=== PATIENT | female | born 1960 | race Caucasian/White ===

== ENCOUNTER → 2016-05-27 | Outpatient (CLI) | payer BC ==
[~2016-05-27] MED LIST: ABILIFY PO; ABILIFY10 MG; ABILIFY10 MG PO; ACID CONTROL150 M1 PO; ALBUTEROL17 GM INH; ALLERGY RELIEF10 M2 PO; ALPRAZOLAM PO; AMBIEN10 MG PO; AMITIZA24 MCG; AMITRIPTYLINE H25 MG; AMLODIPINE BESYL5 MG PO; ASPIRIN81 M1; ASPIRIN81 M1 PO; ATIVAN PO; CHANTIX PO; CLONIDINE HCL0.1 MG PO; CYMBALTA PO; DARVOCET-N 1001 TAB; DILAUDID INJ2 MG/ML; DILAUDID PAIN PUMP; DILAUDID4 M1 PO; FENTANYL1 EAC1 TD; FIORICET 50-321 EACH PO; K-DUR20 ME2 PO; LASIX PO; LOPRESSOR PO; METOPROLOL TAR25 MG; MOBIC; NEURONTIN300 MG PO; NEURONTIN600 MG PO; NEXIUM PO; ONDANSETRON HCL4 MG PO; OXYCONTIN; PHENERGAN; PHENERGAN SUPP25 M1 PR; PHENERGAN25 MG PO; PHENTERMINE H37.5 M1 PO; PREDNISONE10 MG/DOSE PO; PROBIOTIC1 EACH; PROTONIX PO; PROVIGIL100 MG PO; SAVELLA; SEROQUEL PO; SKELAXIN PO; STOOL SOFTENER1 EAC1 PO; TOPAMAX PO; TRAMADOL HCL50 M1 PO; ULTRAM PO; WELLBUTRIN PO; WELLBUTRIN75 M1 PO; XANAX1 MG PO; ZOFRAN PO
[2016-05-27 08:45] LABS: POC - CREATININE 1.21 mg/dL (0.44-1.03)
== END | disposition home or self-care (01) ==
LOC: SCT 08:11
PROVIDERS: Internal Medicine Gastroenterology
DX: G43.909 Migraine, unspecified, not intractable, without status migrainosus (principal); R11.2 Nausea with vomiting, unspecified; R14.0 Abdominal distension (gaseous); R10.9 Unspecified abdominal pain; R68.81 Early satiety; R63.4 Abnormal weight loss; K59.00 Constipation, unspecified; Z53.9 Procedure and treatment not carried out, unspecified reason
CPT/HCPCS: 82565

== ENCOUNTER → 2016-05-29 | Outpatient (CLI) | payer BC ==
--- NOTE | ~2016-05-29 | CT71 ---
[facility] A Service of [facility] RADIOLOGY TEXT RESULTS PATIENT: JESUS VALLEJO LOCATION: [facility] : 62 UNIT #: [id number] AGE: [address]: Pj Monteiro MD SEX: F ORDER DR: [id number] [address] [address] [id number] P MR#: [id number] Acc #: [id number] NAME: JESUS VALLEJO : 1960 SEX: F STUDY DATE/TIME: 05/29/2016 9:24 UNIT: [facility] ROOM: STUDY DESCRIPTION: CT Head Wo Contrast Attending Physician: Pj Monteiro M.D. Referring Physician: Pj Monteiro M.D. Ordering Physician: Pj Monteiro M.D. Primary Care Physician: Anny Diaz A.P.R.N. MEDICAL IMAGING REPORT This report is preliminary unless electronic signature is present. EXAM CT head without contrast dated 05/29/[address] head without contrast dated 02/25/2012. HISTORY Nausea, abdominal pain, vomiting since before January 2016. Headaches. Evaluate for pituitary tumor. FINDINGS CT of the head was obtained without contrast in the axial plane. This CT exam was performed with one or more of the following radiation dose reduction techniques: automatic exposure control, adjustment of mA and/or kV according to patient size, and iterative reconstruction. No acute intracranial hemorrhage, space-occupying mass, mass effect, midline shift, or hydrocephalus. Streak artifact from the left earring limits evaluation of adjacent structures. Grossly the paranasal sinuses and mastoid air cells are well-aerated. Orbits and the ocular structures, bones are within normal limits. IMPRESSION 1. No demonstrable acute intracranial abnormality. 2. For evaluation of pituitary tumor, MRI of the sella and the pituitary gland with and without contrast is more sensitive particularly to evaluate microadenomas which are very small. No obvious abnormality could be seen in the region of the sella on these thicker slices in single axial plane. Dictated by... [facility] A Service of [facility] RADIOLOGY TEXT RESULTS PATIENT: JESUS VALLEJO LOCATION: [facility] : 62 UNIT #: [id number] AGE: [address]: Pj Monteiro MD SEX: F ORDER DR: Rafita Bray M.D. THIS IS AN ELECTRONICALLY VERIFIED REPORT Rafita Bray M.D. at 05/30/2016 12:43 PM CPR/aa TD: 05/29/2016 15:16 JOB #: [id number] MEDICAL IMAGING REPORT
--- NOTE | ~2016-05-29 | CT2 ---
[facility] A Service of [facility] RADIOLOGY TEXT RESULTS PATIENT: JESUS VALLEJO LOCATION: [facility] : 62 UNIT #: [id number] AGE: [address]: Pj Monteiro MD SEX: F ORDER DR: [id number] [place] [id number] P MR#: [id number] Acc #: [id number] NAME: JESUS VALLEJO : 1960 SEX: F STUDY DATE/TIME: 05/29/2016 9:36 UNIT: [facility] ROOM: STUDY DESCRIPTION: CT Abd and Pelv W Cont Attending Physician: Pj Monteiro M.D. Referring Physician: Pj Monteiro M.D. Ordering Physician: Pj Monteiro M.D. Primary Care Physician: Anny Diaz A.P.R.N. MEDICAL IMAGING REPORT This report is preliminary unless electronic signature is present. EXAM CT abdomen and pelvis INDICATION Nausea, abdominal pain, and vomiting. TECHNIQUE CT of the abdomen and pelvis with p.o. and IV contrast. Coronal and sagittal reconstructions were obtained. This CT exam was performed with one or more of the following radiation dose reduction techniques: automatic exposure control, adjustment of mA and/or kV according to patient size, and iterative reconstruction. COMPARISON CT abdomen and pelvis dated 07/06/2013. FINDINGS ABDOMEN: The solid abdominal organs are unchanged. There is a small 1.2 cm right adrenal adenoma. This is unchanged. Gallbladder is surgically absent. No intrahepatic or extrahepatic biliary dilatation. The bowel is not dilated. There is moderate volume of stool throughout the colon. The abdominal aorta is normal in caliber. No enlarged retroperitoneal or mesenteric lymph nodes. PELVIS: The bladder is unremarkable. Uterus is surgically absent. The ovaries are within normal limits. No enlarged pelvic or inguinal lymph nodes. No acute osseous abnormalities. There is evidence prior left pelvic fractures. Degenerative change are noted in the lumbar spine. IMPRESSION 1. No acute findings in the abdomen or pelvis. No findings to [facility] A Service of [facility] RADIOLOGY TEXT RESULTS PATIENT: JESUS VALLEJO LOCATION: [facility] : 62 UNIT #: [id number] AGE: [address]: Pj Monteiro MD SEX: F ORDER DR: account for the patient's abdominal symptoms. 2. Moderate amount of stool in the colon. Dictated by... David Luque M.D. THIS IS AN ELECTRONICALLY VERIFIED REPORT David Luque M.D. at 05/29/2016 2:38 PM MARY/maurizio TD: 05/29/2016 14:27 JOB #: [id number] MEDICAL IMAGING REPORT
[2016-05-29 08:30] LABS: POC - CREATININE 1.03 mg/dL (0.44-1.03)
== END | disposition home or self-care (01) ==
LOC: SCT 07:13
PROVIDERS: Internal Medicine Gastroenterology
DX: R11.2 Nausea with vomiting, unspecified (principal); G43.909 Migraine, unspecified, not intractable, without status migrainosus
CPT/HCPCS: 70450; 74177; 82565; Q9967

== ENCOUNTER → 2016-06-03 | Outpatient (CLI) | payer BC ==
--- NOTE | ~2016-06-03 | NM19 ---
[facility] A Service of [facility] & [facility] RADIOLOGY TEXT RESULTS PATIENT: JESUS VALLEJO LOCATION: [facility] : 62 UNIT #: [id number] AGE: [address]: Pj Monteiro MD SEX: F ORDER DR: [id number] [facility] [address] [place], [place] [address] [id number] O MR#: [id number] Acc #: [id number] NAME: JESUS VALLEJO : 1960 SEX: F STUDY DATE/TIME: 06/03/2016 14:09 UNIT: [facility] ROOM: STUDY DESCRIPTION: NM Gastric Emptying Study Attending Physician: Pj Monteiro M.D. Referring Physician: Pj Monteiro M.D. Ordering Physician: Pj Monteiro M.D. Primary Care Physician: Anny Diaz A.P.R.N. MEDICAL IMAGING REPORT This report is preliminary unless electronic signature is present EXAM Radionuclide gastric emptying scan, solid phase 06/03/2016 HISTORY Nausea, cannot eat much especially at night, makes symptoms worse. Constipation, excessive bloating, glutin intolerant, acid reflux, back pain, gassy, started before 2015, doing better in the past week. Cholecystectomy 2015. No history of cancer. FINDINGS Following ingestion of 549 mcCi technetium-99m sulfur colloid admixed in eggs with water, anterior and posterior views of the abdomen were obtained at 0, 15, 30, 45, 60, 75 minutes post ingestion. Region of interest drawn around stomach. Time activity curve constructed. Percent remaining at time intervals as follows: 15 minutes - 75%, 30 minutes - 74%, 45 minutes - 58%, 60 minutes - 55%, 75 minutes - 34%. Percent empty at time intervals as follows: 15 minutes - 25%, 30 minutes - 26%, 45 minutes - 42%, 60 minutes - 45%, 75 minutes - 66%. T-1/2 of gastric emptying 64 minutes. IMPRESSION 1. T-1/2 of gastric emptying 64 minutes. Normal at this laboratory is greater than or equal to 50% in 65-90 minutes. See details in body of report above. Dictated by... Renny Munguia M.D. THIS IS AN ELECTRONICALLY VERIFIED REPORT [facility] A Service of [facility] RADIOLOGY TEXT RESULTS PATIENT: JESUS VALLEJO LOCATION: [facility] #: [id number] : 62 UNIT #: [id number] AGE: [address]: Pj Monteiro MD SEX: F ORDER DR: Renny Munguia M.D. at 06/04/2016 2:18 PM [facility]/[place] TD: 06/04/2016 00:33 JOB #: [id number] MEDICAL IMAGING REPORT Page 1 of 1 COPY
== END | disposition home or self-care (01) ==
LOC: CNUC 08:51
DX: K59.00 Constipation, unspecified (principal); G43.909 Migraine, unspecified, not intractable, without status migrainosus; R63.4 Abnormal weight loss; R11.2 Nausea with vomiting, unspecified; R14.0 Abdominal distension (gaseous); R10.9 Unspecified abdominal pain; R68.81 Early satiety
CPT/HCPCS: 78264; A9541

== ENCOUNTER → 2016-10-24 | Outpatient (CLI) | payer BC ==
[2016-10-24 16:04] LABS: BASOPHIL# 0.1 X10e3 (0-0.3); BASOPHIL% 1.1 % (0-2.5); EOSINOPHIL# 0.1 X10e3 (0-0.7); EOSINOPHIL% 1.2 % (0.0-7.0); HEMATOCRIT 38.4 % (35.0-45.0); HEMOGLOBIN 13.4 gm/dL (12.0-16.0); LYMPHOCYTE# 2.5 X10e3 (1.0-3.5); LYMPHOCYTE% 37.6 % (17.0-45.0); MEAN CELL VOLUME 93.2 FL (83-96); MEAN CORPUSCULAR HEMOGLOBIN 32.5 PG (28-34); MEAN CORPUSCULAR HGB CONC 34.9 g/dL (30-36); MEAN PLATELET VOLUME 7.5 FL (6.5-11.5); MONOCYTE# 0.5 X10e3 (0-1.0); MONOCYTE% 7.1 % (3.0-12.0); NEUTROPHIL# 3.6 X10e3 (1.5-7.1); PLATELET COUNT 324 X10e3 (140-420); RED BLOOD COUNT 4.12 X10e (3.90-5.30); RED CELL DISTRIBUTION WIDTH 14.6 % (11.0-15.5); WHITE BLOOD COUNT 6.8 X10e3 (4.0-10.5)
[2016-10-24 16:37] LABS: DIFF IND NO
[2016-10-24 16:42] LABS: ALBUMIN SERUM 4.3 g/dL (3.5-5.0); BILIRUBIN,TOTAL 0.7 mg/dL (0.2-2.0); BUN/CREATININE RATIO 11.25; CALCIUM SERUM 8.9 mg/dL (8.4-10.2); CREATININE SERUM 0.8 mg/dL (0.6-1.4); GLOM FILT RATE Estimated 83.1 mL/min (>60); POTASSIUM 4.1 mmol/L (3.5-5.1); PROTEIN TOTAL SERUM 7.2 g/dL (6.0-8.3)
[2016-10-24 16:56] LABS: SEDIMENTATION RATE-SW ONLY 14 mm/hr (0-35)
[2016-10-30 23:06] LABS: ANA SCREEN Positive (Negative); ANA TITER (ANA) 1:40 (Negative); ANA TITER COMMENT Has been added (()); NUCLEAR PATTERN (ANA) Homogeneous (())
== END | disposition home or self-care (01) ==
LOC: SLABONLY 15:32
PROVIDERS: Surgery Vascular Surgery
DX: I73.89 Other specified peripheral vascular diseases (principal); R11.2 Nausea with vomiting, unspecified
CPT/HCPCS: 36415; 80053; 85025; 85651; 86038; 86039; 86140

== ENCOUNTER → 2016-10-24 | Outpatient (CLI) | payer BC ==
--- NOTE | ~2016-10-24 | CR142 ---
[facility]. [facility] A Service of [facility] & [facility] RADIOLOGY TEXT RESULTS PATIENT: JESUS VALLEJO LOCATION: [facility] : 62 UNIT #: [id number] AGE: [address]: Anny Diaz [employer]PER[employer]OR [employer] SEX: F ORDER DR: [id number] [place] [id number] O MR#: [id number] Acc #: [id number] NAME: JESUS VALLEJO : 1960 SEX: F STUDY DATE/TIME: 10/24/2016 15:50 UNIT: [facility] ROOM: STUDY DESCRIPTION: CR Hand Min 3 Views Rt Attending Physician: Anny Diaz A.P.R.N. Referring Physician: Anny Diaz A.P.R.N. Ordering Physician: Anny Diaz A.P.R.N. Primary Care Physician: Anny Diaz A.P.R.N. MEDICAL IMAGING REPORT This report is preliminary unless electronic signature is present. EXAM Right hand. INDICATIONS Right hand swelling. Palpable mass in the right hand. FINDINGS Three views of the right hand without comparison. There is no acute fracture or dislocation. Alignment is anatomic. There is severe arthrosis of the right hand at the first carpometacarpal articulation. The joint appears subluxed. There is more mild osteoarthritis of the interphalangeal joints. No foreign body. IMPRESSION Osteoarthritis of the right hand, particularly at the first carpometacarpal articulation. Dictated by... David Luque M.D. THIS IS AN ELECTRONICALLY VERIFIED REPORT David Luque M.D. at 10/25/2016 3:54 PM MARY/philipp TD: 10/25/2016 12:11 JOB #: [id number] MEDICAL IMAGING REPORT Page 1 of 1
--- NOTE | ~2016-10-24 | CR58 ---
[facility] A Service of [facility] & [facility] RADIOLOGY TEXT RESULTS PATIENT: JESUS VALLEJO LOCATION: [facility] : 62 UNIT #: [id number] AGE: [address]: Anny Diaz PAINT [employer]ORATORY TECHNICIAN SEX: F ORDER DR: [id number] [place] [id number] O MR#: [id number] Acc #: [id number] NAME: JESUS VALLEJO : 1960 SEX: F STUDY DATE/TIME: 10/24/2016 15:50 UNIT: [facility] ROOM: STUDY DESCRIPTION: CR Cervical Spine 2 or 3 Views Attending Physician: Anny Diaz A.P.R.N. Referring Physician: Anny Diaz A.P.R.N. Ordering Physician: Anny Diaz A.P.R.N. Primary Care Physician: Anny Diaz A.P.R.N. MEDICAL IMAGING REPORT This report is preliminary unless electronic signature is present. EXAM Cervical spine. INDICATIONS Right upper extremity numbness and tingling. Right upper extremity radiculopathy. FINDINGS Three views of the cervical spine without comparison. There is no acute fracture. Vertebral body height and alignment is within normal limits. There is mild disc space narrowing at C3-4 and C4-5 with moderate disc space narrowing at C5-6 and C6-7. There is associated osteophyte formation and facet arthropathy throughout the cervical spine. Prevertebral soft tissues are normal. IMPRESSION Moderate multilevel degenerative change throughout the cervical spine. Dictated by... David Luque M.D. THIS IS AN ELECTRONICALLY VERIFIED REPORT David Luque M.D. at 10/25/2016 3:54 PM MARY/philipp TD: 10/25/2016 12:21 JOB #: [id number] MEDICAL IMAGING REPORT Page 1 of 1
== END | disposition home or self-care (01) ==
LOC: SRAD 15:25
DX: R20.0 Anesthesia of skin (principal); M79.644 Pain in right finger(s); M18.11 Unilateral primary osteoarthritis of first carpometacarpal joint, right hand; M47.892 Other spondylosis, cervical region
CPT/HCPCS: 72040; 73130